=== PATIENT | female | born 1965 | race African-American/Black ===

== ENCOUNTER 2023-06-10 12:20 | Emergency (ER) | payer MEDICARE ==
[2023-06-10] MEDS ORDERED: Dexamethasone 10 MG/ML VIAL ONE (13:17)
[2023-06-10] MEDS ORDERED: Oxymetazoline HCl 0.05% (30 ML BOT) ONE (13:17)
[2023-06-10 13:33] LABS: SARS-CoV-2 NAA Rapid Test Not Detected (NotDetected)
[2023-06-10] MEDS ORDERED: Acetaminophen 500 MG TAB ONE (14:20)
== END 2023-06-10 14:22 | disposition home or self-care (01) ==
LOC: ERS 12:20
DX: J18.9 Pneumonia, unspecified organism (principal); B34.9 Viral infection, unspecified; I10 Essential (primary) hypertension; J45.909 Unspecified asthma, uncomplicated; E78.5 Hyperlipidemia, unspecified; Z79.899 Other long term (current) drug therapy
CPT/HCPCS: 99283; J1100

== ENCOUNTER 2023-07-11 09:11 | Outpatient (CLI) | payer MEDICARE | END 2023-07-11 09:12 | disposition home or self-care (01) | LOC: BICRAD 09:11 | PROVIDERS: ATTEND Student in an Organized Health Care Education/Training Program | DX: M25.561 Pain in right knee (principal); M17.0 Bilateral primary osteoarthritis of knee ==

== ENCOUNTER 2023-11-22 12:07 | Outpatient (CLI) | payer MEDICARE, MEDICAID | END 2023-11-22 12:08 | disposition home or self-care (01) | LOC: RAD 12:07 | PROVIDERS: ATTEND Internal Medicine | DX: R06.00 Dyspnea, unspecified (principal); R91.8 Other nonspecific abnormal finding of lung field | CPT/HCPCS: 71046 ==

== ENCOUNTER 2024-03-05 08:50 | Outpatient (CLI) | payer MEDICARE, MEDICAID | END 2024-03-05 08:51 | disposition home or self-care (01) | LOC: RAD 08:50 | PROVIDERS: ATTEND Internal Medicine | DX: D86.9 Sarcoidosis, unspecified (principal); J84.10 Pulmonary fibrosis, unspecified | CPT/HCPCS: 71046 ==

== ENCOUNTER 2025-03-23 08:43 | Outpatient (CLI) | payer MEDICARE, MEDICAID | END 2025-03-23 08:44 | disposition home or self-care (01) | LOC: CT 08:43 | DX: D86.0 Sarcoidosis of lung (principal); J45.21 Mild intermittent asthma with (acute) exacerbation; J84.10 Pulmonary fibrosis, unspecified; J98.4 Other disorders of lung; R91.1 Solitary pulmonary nodule; J94.8 Other specified pleural conditions | CPT/HCPCS: 71250 ==